=== PATIENT | male | born 1980 | race Caucasian/White ===

== ENCOUNTER 2023-11-08 13:34 | Emergency (ER) | payer SELFPAY | END 2023-11-08 15:13 | disposition home or self-care (01) | LOC: MADERS 13:34 | DX: T18.9XXA Foreign body of alimentary tract, part unspecified, initial encounter (principal); W44.F3XA Food entering into or through a natural orifice, initial encounter | CPT/HCPCS: 70360; 71046; 74019 ==

== ENCOUNTER 2024-11-02 07:57 | Emergency (ER) | payer SELFPAY ==
[2024-11-02 08:46] LABS: Hematocrit 47.6 % (42.0-52.0); Mean Corpuscular HGB CONC 31.6 g/dL (32.0-36.0); Mean Corpuscular Hemoglobin 29.8 pg (27.0-31.0); Mean Corpuscular Volume 94.4 fl (78.0-98.0); Mean Platelet Volume 7.8 fL (7.4-10.4); Platelet Count 200 10x3/uL (130-400); RBC Distribution Width 12.2 % (11.5-14.5); Red Blood Cell (RBC) Count 5.04 mill/uL (4.70-6.10); White Blood Cell (WBC) Count 7.5 10x3/uL (4.8-10.8)
[2024-11-02 08:48] LABS: ALT (SGPT) 22 U/L (Less than 45); AST (SGOT) 25 U/L (11-34); Albumin 4.5 g/dL (3.1-4.5); Alkaline Phosphatase 74 U/L (40-110); Anion Gap 18 mmol/L (10-20); BUN (Urea Nitrogen) 10 mg/dL (8.9-20.6); Bilirubin, Total 0.5 mg/dL (0.3-1.2); Calc. Creatinine Clearance 0 mL/min (70-130); Calcium 9.5 mg/dL (7.8-10.44); Carbon Dioxide 16 mmol/L (22-29); Chloride 106 mmol/L (98-107); Estimated GFR 111; Globulin 3.7 g/dL (2.4-3.5); Glucose 98 mg/dL (70-105); Potassium 3.9 mmol/L (3.5-5.1); Protein, Total 8.2 g/dL (6.0-8.3); Sodium 136 mmol/L (136-145)
[2024-11-02 08:53] LABS: Manual Diff?? YES
[2024-11-02 08:54] LABS: Band 6 % (5-11); Lymphocytes 23 % (21-51); MDiff Complete? YES; Monocytes 8 % (0-10); Neutrophil 63 % (42-75); Platelet Adequacy Comment Appears Adequate; RBC Morph Comment Within Normal Limits
[2024-11-02] MEDS ORDERED: Iopamidol 370 76% 100 ML VIAL ONE (09:00)
== END 2024-11-02 09:36 | disposition home or self-care (01) ==
LOC: MADERS 07:57
DX: K62.89 Other specified diseases of anus and rectum (principal); Z55.6 Problems related to health literacy
CPT/HCPCS: 36415; 74177; 80053; 85025; 87070; 87077; 87205; Q9967